=== PATIENT | male | born 1945 | race Caucasian/White ===

== ENCOUNTER → 2016-09-07 | Outpatient (CLI) | payer MEDICARE, BC ==
[~2016-09-07] MED LIST: ASPIR LOW81 MG PO; B-12 TIME1000 MCG PO; ENALAPRIL2.5 MG PO; ENALAPRIL20 MG PO; FLEXERIL10 MG PO; FLONASE NASAL S16 GM NS; FLUTICASON0.05 MG/AC NS; LEVEMIR100 U/M1 SQ; LEVEMIR100 U/ML SC; MAGNESIUM200 MG PO; MECLICOT25 MG PO; METFORMIN750 MG PO; NOVOLOG 100U100 U/ML SQ; PRAVASTATIN20 MG PO; TESTOSTERON200 MG/ML IM; VERAPAMIL80 MG PO; ZOFRAN4 M1 PO; ZORVOLEX18 MG PO
== END ==
LOC: LAB 09:39
DX: E10.9 Type 1 diabetes mellitus without complications (principal); I10 Essential (primary) hypertension; Z12.5 Encounter for screening for malignant neoplasm of prostate; E78.2 Mixed hyperlipidemia; E53.8 Deficiency of other specified B group vitamins

== ENCOUNTER → 2017-02-10 | Outpatient (CLI) | payer MEDICARE, BC ==
[~2017-02-10] VITALS: Ht 172.7 cm; Wt 74.1 kg
[2017-02-10 09:15] VITALS: BP 143/79
== END ==
LOC: AMSURD 08:14
DX: Z01.812 Encounter for preprocedural laboratory examination (principal); E10.9 Type 1 diabetes mellitus without complications

== ENCOUNTER → 2017-07-28 | Outpatient (CLI) | payer MEDICARE, BC ==
[~2017-07-28] VITALS: Ht 170.2 cm; Wt 79.5 kg
[~2017-07-28] MED LIST changes: +AFRIN PUMPMIST15 ML NS; -B-12 TIME1000 MCG PO; +CYANOCOBAL1000 MCG/1 IM; +CYCLOBENZAPRINE10 M1 PO; +DICLOFENAC SOD100 M1 PO; +EXCEDRIN MIGRA1 EACH PO; -FLEXERIL10 MG PO; +FLOMAX0.4 MG PO; +GLUCOPHAGE PO; +LEADER PAIN RE500 M1 PO; +LEVEMIR100 U/M1 SC; -LEVEMIR100 U/ML SC; +MAG DELAY70 MG; -METFORMIN750 MG PO; +PRAVASTATIN SOD40 MG PO; -PRAVASTATIN20 MG PO; +VERAPAMIL ER120 MG PO; +VERAPAMIL ER240 M1 PO; -VERAPAMIL80 MG PO; -ZORVOLEX18 MG PO
[2017-07-28 10:14] LABS: EOS # 0.1 (0.04-0.40); EOS % 1.8 % (0.0-4.0); HEMATOCRIT 47.1 % (42.0-52.0); HEMOGLOBIN 15.2 g/dL (13.5-18.0); LYMPH# 0.9 (1.50-4.00); MEAN CELL VOLUME 92 fl (78-100); MEAN CORPUSCULAR HEMOGLOBIN 30 pg (27-31); MEAN CORPUSCULAR HGB CONC 32 g/dL (33-37); MEAN PLATELET VOLUME 10.6 fl (7.4-10.4); MONO # 0.4 (0.20-0.80); NEU # 3.2 (1.40-6.50); PLATELET COUNT 138 K/mm3 (130-400); RED CELL DISTRIBUTION WIDTH 14.7 % (11.5-14.5); WHITE BLOOD COUNT 4.5 K/mm3 (4.8-10.8)
[2017-07-28 10:19] VITALS: BP 112/76
[2017-07-28 10:42] LABS: ALBUMIN 3.8 g/dL (3.5-5.0); BUN/CREATININE RATIO 22.8 (6.0-26.0); CALCIUM 9.1 mg/dL (8.4-10.2); POTASSIUM 4.9 mmol/L (3.6-5.0); TOTAL BILIRUBIN 0.5 mg/dL (0.2-1.3); TOTAL PROTEIN 6.3 g/dL (6.3-8.2)
[2017-07-28 10:43] LABS: URINE APPEARANCE CLEAR; URINE BILIRUBIN NEGATIVE (NEGATIVE); URINE BLOOD NEGATIVE (NEGATIVE); URINE COLOR YELLOW; URINE KETONE NEGATIVE (NEGATIVE); URINE LEUKOCYTE ESTERASE NEGATIVE (NEGATIVE); URINE NITRATE NEGATIVE (NEGATIVE); URINE PROTEIN(semi-quant) TRACE mg/dL (NEGATIVE); URINE UROBILINOGEN NORMAL (NORMAL)
[2017-07-28 10:44] LABS: URINE MUCUS PRESENT (NOT PRESENT)
== END ==
LOC: RAD 09:48
PROVIDERS: Internal Medicine
DX: Z01.818 Encounter for other preprocedural examination (principal); E10.9 Type 1 diabetes mellitus without complications; J34.2 Deviated nasal septum; Z88.0 Allergy status to penicillin

== ENCOUNTER → 2017-10-16 | Outpatient (CLI) | payer MEDICARE, BC ==
[2017-07-28 10:19] VITALS: BP 112/76
[2017-10-16 12:21] LABS: EOS # 0.1 (0.04-0.40); EOS % 1.8 % (0.0-4.0); HEMATOCRIT 47.5 % (42.0-52.0); HEMOGLOBIN 15.5 g/dL (13.5-18.0); LYMPH# 0.8 (1.50-4.00); MEAN CELL VOLUME 91 fl (78-100); MEAN CORPUSCULAR HEMOGLOBIN 30 pg (27-31); MEAN CORPUSCULAR HGB CONC 33 g/dL (33-37); MEAN PLATELET VOLUME 11.3 fl (7.4-10.4); MONO # 0.6 (0.20-0.80); NEU # 4.1 (1.40-6.50); PLATELET COUNT 145 K/mm3 (130-400); RED BLOOD COUNT 5.25 M/mm3 (4.20-5.60); RED CELL DISTRIBUTION WIDTH 13.5 % (11.5-14.5); WHITE BLOOD COUNT 5.5 K/mm3 (4.8-10.8)
[2017-10-16 12:37] LABS: ALBUMIN 3.7 g/dL (3.5-5.0); CALCIUM 9.3 mg/dL (8.4-10.2); POTASSIUM 4.5 mmol/L (3.6-5.0); TOTAL BILIRUBIN 0.3 mg/dL (0.2-1.3); TOTAL PROTEIN 6.7 g/dL (6.3-8.2)
[2017-10-16 13:22] LABS: URINE APPEARANCE HAZY; URINE BILIRUBIN NEGATIVE (NEGATIVE); URINE BLOOD NEGATIVE (NEGATIVE); URINE COLOR YELLOW; URINE GLUCOSE 50 mg/dL mg/dL (NEGATIVE); URINE KETONE NEGATIVE (NEGATIVE); URINE NITRATE NEGATIVE (NEGATIVE); URINE PROTEIN(semi-quant) TRACE mg/dL (NEGATIVE); URINE UROBILINOGEN NORMAL (NORMAL)
[2017-10-16 13:23] LABS: URINE LEUKOCYTE ESTERASE TRACE (NEGATIVE); URINE MUCUS PRESENT (NOT PRESENT)
[2017-10-16 13:25] LABS: ERYTHROCYTE SEDIMENTATION RATE 2 mm/hr (0-20)
[2017-10-17 01:16] LABS: TESTOSTERONE 973 ng/dL (221-716)
== END ==
LOC: LAB 11:50
PROVIDERS: Internal Medicine
DX: E10.9 Type 1 diabetes mellitus without complications (principal); Z12.5 Encounter for screening for malignant neoplasm of prostate; E78.2 Mixed hyperlipidemia; E29.1 Testicular hypofunction; E53.8 Deficiency of other specified B group vitamins; I10 Essential (primary) hypertension; N30.00 Acute cystitis without hematuria

== ENCOUNTER → 2018-02-05 | Outpatient (CLI) | payer MEDICARE, BC ==
[2018-01-23 12:40] VITALS: BP 139/79
[~2018-02-05] MED LIST changes: +MAGNESIUM400 MG PO; +METFORMIN ER500 MG PO
[2018-02-05 15:13] LABS: PROTHROMBIN TIME 9.1 SECONDS (9.0-12.0)
== END ==
LOC: LAB 14:05
PROVIDERS: Internal Medicine
DX: Z01.818 Encounter for other preprocedural examination (principal)

== ENCOUNTER → 2018-06-07 | Outpatient (CLI) | payer MEDICARE, BC ==
[2018-01-23 12:40] VITALS: BP 139/79
[2018-06-07 16:06] LABS: EOS # 0.1 (0.04-0.40); EOS % 1.8 % (0.0-4.0); HEMATOCRIT 46.8 % (42.0-52.0); HEMOGLOBIN 15.5 g/dL (13.5-18.0); LYMPH# 0.9 (1.50-4.00); MEAN CELL VOLUME 90 fl (78-100); MEAN CORPUSCULAR HEMOGLOBIN 30 pg (27-31); MEAN CORPUSCULAR HGB CONC 33 g/dL (33-37); MEAN PLATELET VOLUME 10.7 fl (7.4-10.4); MONO # 0.4 (0.20-0.80); NEU # 3.5 (1.40-6.50); PLATELET COUNT 135 K/mm3 (130-400); RED BLOOD COUNT 5.18 M/mm3 (4.20-5.60); RED CELL DISTRIBUTION WIDTH 13.6 % (11.5-14.5); WHITE BLOOD COUNT 4.9 K/mm3 (4.8-10.8)
[2018-06-07 16:22] LABS: ALBUMIN 4.1 g/dL (3.5-5.0); CALCIUM 9.2 mg/dL (8.4-10.2); POTASSIUM 4.6 mmol/L (3.6-5.0); TOTAL BILIRUBIN 0.4 mg/dL (0.2-1.3); TOTAL PROTEIN 6.4 g/dL (6.3-8.2)
== END ==
LOC: RAD 15:38
PROVIDERS: Internal Medicine
DX: I10 Essential (primary) hypertension (principal); R06.02 Shortness of breath; E10.9 Type 1 diabetes mellitus without complications

== ENCOUNTER → 2018-06-11 | Outpatient (CLI) | payer MEDICARE, BC ==
[2018-01-23 12:40] VITALS: BP 139/79
== END ==
LOC: VAS 07:56
DX: I11.9 Hypertensive heart disease without heart failure (principal); E10.9 Type 1 diabetes mellitus without complications; G47.33 Obstructive sleep apnea (adult) (pediatric)

== ENCOUNTER → 2018-07-20 | Outpatient (CLI) | payer MEDICARE, BC ==
[2018-01-23 12:40] VITALS: BP 139/79
== END ==
LOC: CARDREHAB 09:14 → CARDLAB 10:48
DX: R06.02 Shortness of breath (principal); E10.9 Type 1 diabetes mellitus without complications; R53.83 Other fatigue
CPT/HCPCS: A9500

== ENCOUNTER 2019-04-14 13:07 | Emergency (ER) | payer MEDICARE, BC ==
[~2019-04-14] VITALS: Wt 77.3 kg
[2019-04-14] MEDS ORDERED: TRULICITY1.5 MG/0.5 SC (13:30)
[2019-04-14 13:46] LABS: POTASSIUM 4.5 mmol/L (3.5-5.1)
[2019-04-14 13:47] LABS: CALCIUM 8.5 mg/dL (8.3-10.5); URINE APPEARANCE CLEAR; URINE BILIRUBIN NEGATIVE (NEGATIVE); URINE BLOOD NEGATIVE (NEGATIVE); URINE COLOR YELLOW; URINE KETONE 2+ (NEGATIVE); URINE LEUKOCYTE ESTERASE NEGATIVE (NEGATIVE); URINE NITRATE NEGATIVE (NEGATIVE); URINE PROTEIN(semi-quant) TRACE mg/dL (NEGATIVE); URINE UROBILINOGEN NORMAL (NORMAL)
[2019-04-14 13:48] LABS: HEMATOCRIT 51.9 % (42.0-52.0); HEMOGLOBIN 17.5 g/dL (13.5-18.0); MEAN CELL VOLUME 90 fl (78-100); MEAN CORPUSCULAR HEMOGLOBIN 31 pg (27-31); MEAN CORPUSCULAR HGB CONC 34 g/dL (33-37); MEAN PLATELET VOLUME 11.2 fl (7.4-10.4); PLATELET COUNT 106 K/mm3 (130-400); RED BLOOD COUNT 5.74 M/mm3 (4.20-5.60); RED CELL DISTRIBUTION WIDTH 14.2 % (11.5-14.5); TOTAL PROTEIN 6.4 g/dL (6.2-8.1); WHITE BLOOD COUNT 7.3 K/mm3 (4.8-10.8)
[2019-04-14 14:04] LABS: BAND 4 % (0-10)
[2019-04-14 14:05] LABS: LYMPHOCYTE 3 % (20-51); MONOCYTE 6 % (3-10); NEUTROPHILS 86 % (42-75)
[2019-04-14 18:07] VITALS: BP 127/79
== END 2019-04-14 17:23 | disposition other institution (70) ==
LOC: ED 13:07
PROVIDERS: Family Medicine
DX: E87.2 Acidosis (principal); E11.9 Type 2 diabetes mellitus without complications; I10 Essential (primary) hypertension; Z87.442 Personal history of urinary calculi; Z90.49 Acquired absence of other specified parts of digestive tract; Z79.82 Long term (current) use of aspirin; Z79.4 Long term (current) use of insulin
CPT/HCPCS: J1815; J2405; J7030

== ENCOUNTER 2019-04-14 17:23 | Inpatient (IN) | payer MEDICARE, BC ==
[~2019-04-14] VITALS: Ht 170.2 cm; Wt 78.3 kg
[~2019-04-14 17:23] MED LIST changes: +TRULICITY1.5 MG/0.5 SC
[2019-04-14 18:01] VITALS: BP 127/79
[2019-04-14 18:04] VITALS: BP 127/79
[2019-04-14 22:59] VITALS: BP 119/67
[2019-04-15 02:24] VITALS: BP 112/65
[2019-04-15 06:21] VITALS: BP 143/70
[2019-04-15 06:32] LABS: HEMATOCRIT 45.4 % (42.0-52.0); HEMOGLOBIN 15.2 g/dL (13.5-18.0); MEAN CELL VOLUME 93 fl (78-100); MEAN CORPUSCULAR HEMOGLOBIN 31 pg (27-31); MEAN CORPUSCULAR HGB CONC 34 g/dL (33-37); MEAN PLATELET VOLUME 10.7 fl (7.4-10.4); PLATELET COUNT 85 K/mm3 (130-400); RED BLOOD COUNT 4.88 M/mm3 (4.20-5.60); RED CELL DISTRIBUTION WIDTH 14.5 % (11.5-14.5); WHITE BLOOD COUNT 3.5 K/mm3 (4.8-10.8)
[2019-04-15 06:52] LABS: BAND 3 % (0-10); LYMPHOCYTE 8 % (20-51); MONOCYTE 8 % (3-10); NEUTROPHILS 73 % (42-75)
[2019-04-15 06:55] LABS: POTASSIUM 4.4 mmol/L (3.5-5.1)
[2019-04-15 06:56] LABS: CALCIUM 7.4 mg/dL (8.3-10.5)
[2019-04-15 11:05] VITALS: BP 136/80
[2019-04-15 15:29] VITALS: BP 108/62
[2019-04-15 18:46] VITALS: BP 98/61
[2019-04-15 23:39] VITALS: BP 114/63
[2019-04-16 02:27] VITALS: BP 114/65
[2019-04-16 06:24] VITALS: BP 113/69
[2019-04-16 08:30] LABS: EOS # 0.3 (0.04-0.40); HEMATOCRIT 47.7 % (42.0-52.0); HEMOGLOBIN 15.5 g/dL (13.5-18.0); MEAN CELL VOLUME 92 fl (78-100); MEAN CORPUSCULAR HEMOGLOBIN 30 pg (27-31); MEAN CORPUSCULAR HGB CONC 33 g/dL (33-37); MEAN PLATELET VOLUME 10.6 fl (7.4-10.4); MONO # 0.4 (0.20-0.80); NEU # 3.1 (1.40-6.50); PLATELET COUNT 101 K/mm3 (130-400); RED BLOOD COUNT 5.16 M/mm3 (4.20-5.60); RED CELL DISTRIBUTION WIDTH 14.7 % (11.5-14.5); WHITE BLOOD COUNT 4.5 K/mm3 (4.8-10.8)
[2019-04-16 08:38] LABS: POTASSIUM 4.3 mmol/L (3.5-5.1)
[2019-04-16 08:39] LABS: CALCIUM 7.7 mg/dL (8.3-10.5)
[2019-04-16 08:44] LABS: EOS % 6.2 % (0.0-4.0); LYMPH# 0.7 (1.50-4.00)
[2019-04-16] MEDS ORDERED: VIBRAMYCIN HYC100 MG PO (11:01)
[2019-04-16 11:43] VITALS: BP 129/72
== END 2019-04-16 13:55 | disposition home or self-care (01) | DRG 639 ==
LOC: MED/SURG 17:23
PROVIDERS: Nurse Practitioner Primary Care; ADMIT Family Medicine
DX: E11.10 Type 2 diabetes mellitus with ketoacidosis without coma (principal); G47.33 Obstructive sleep apnea (adult) (pediatric); K52.9 Noninfective gastroenteritis and colitis, unspecified; E11.9 Type 2 diabetes mellitus without complications; Z79.4 Long term (current) use of insulin; Z79.82 Long term (current) use of aspirin; Z99.81 Dependence on supplemental oxygen
CPT/HCPCS: J0696; J1815; J1956; J3490; J7030

== ENCOUNTER → 2019-06-03 | Outpatient (CLI) | payer MEDICARE, BC ==
[~2019-06-03] MED LIST changes: +VIBRAMYCIN HYC100 MG PO
[2019-06-04 12:44] LABS: LYME DISEASE EIA Negative (Negative)
== END ==
LOC: LAB 10:58
PROVIDERS: Internal Medicine
DX: R50.9 Fever, unspecified (principal)

== ENCOUNTER → 2019-06-11 | Outpatient (CLI) | payer MEDICARE, BC ==
[2019-06-11 09:25] LABS: EOS # 0.3 (0.04-0.40); HEMOGLOBIN 15.9 g/dL (13.5-18.0); MEAN CELL VOLUME 92 fl (78-100); MEAN CORPUSCULAR HEMOGLOBIN 30 pg (27-31); MEAN CORPUSCULAR HGB CONC 32 g/dL (33-37); MEAN PLATELET VOLUME 11.3 fl (7.4-10.4); MONO # 0.4 (0.20-0.80); NEU # 3.4 (1.40-6.50); PLATELET COUNT 138 K/mm3 (130-400); RED BLOOD COUNT 5.35 M/mm3 (4.20-5.60); RED CELL DISTRIBUTION WIDTH 13.6 % (11.5-14.5); WHITE BLOOD COUNT 4.9 K/mm3 (4.8-10.8)
[2019-06-11 09:37] LABS: POTASSIUM 5.2 mmol/L (3.5-5.1)
[2019-06-11 09:38] LABS: ALBUMIN 3.9 g/dL (3.4-4.8)
[2019-06-11 09:39] LABS: CALCIUM 9.1 mg/dL (8.3-10.5)
[2019-06-11 09:40] LABS: TOTAL PROTEIN 6.4 g/dL (6.2-8.1)
[2019-06-11 09:42] LABS: TOTAL BILIRUBIN 0.5 mg/dL (0.2-1.2)
[2019-06-11 09:47] LABS: MAGNESIUM 1.68 mg/dL (1.60-2.60)
[2019-06-11 09:49] LABS: EOS % 6.6 % (0.0-4.0); LYMPH# 0.7 (1.50-4.00)
[2019-06-11 10:39] LABS: ERYTHROCYTE SEDIMENTATION RATE 1 mm/hr (0-20)
[2019-06-11 23:33] LABS: TESTOSTERONE 169 ng/dL (221-716)
== END ==
LOC: RAD 09:07
PROVIDERS: Internal Medicine
DX: M19.041 Primary osteoarthritis, right hand (principal); M19.042 Primary osteoarthritis, left hand

== ENCOUNTER → 2019-08-19 | Outpatient (CLI) | payer MEDICARE, BC ==
[2019-08-19 16:19] LABS: URINE APPEARANCE CLEAR; URINE COLOR YELLOW
[2019-08-19 16:20] LABS: URINE BILIRUBIN NEGATIVE (NEGATIVE); URINE BLOOD TRACE (NEGATIVE); URINE KETONE NEGATIVE (NEGATIVE); URINE LEUKOCYTE ESTERASE NEGATIVE (NEGATIVE); URINE NITRATE NEGATIVE (NEGATIVE); URINE PROTEIN(semi-quant) 1+ mg/dL (NEGATIVE); URINE UROBILINOGEN NORMAL (NORMAL)
== END ==
LOC: LAB 15:57
PROVIDERS: Internal Medicine
DX: E10.9 Type 1 diabetes mellitus without complications (principal); N39.0 Urinary tract infection, site not specified

== ENCOUNTER → 2019-11-28 | Outpatient (CLI) | payer MEDICARE, BC ==
[2019-11-28 11:29] LABS: EOS # 0.1 (0.04-0.40); EOS % 1.8 % (0.0-4.0); HEMATOCRIT 49.5 % (42.0-52.0); HEMOGLOBIN 16.5 g/dL (13.5-18.0); LYMPH# 0.8 (1.50-4.00); MEAN CELL VOLUME 90 fl (78-100); MEAN CORPUSCULAR HEMOGLOBIN 30 pg (27-31); MEAN CORPUSCULAR HGB CONC 33 g/dL (33-37); MEAN PLATELET VOLUME 10.8 fl (7.4-10.4); MONO # 0.4 (0.20-0.80); NEU # 3.1 (1.40-6.50); PLATELET COUNT 111 K/mm3 (130-400); WHITE BLOOD COUNT 4.4 K/mm3 (4.8-10.8)
[2019-11-28 11:39] LABS: ALBUMIN 4.1 g/dL (3.4-4.8); POTASSIUM 4.7 mmol/L (3.5-5.1)
[2019-11-28 11:40] LABS: CALCIUM 9.3 mg/dL (8.3-10.5)
[2019-11-28 11:42] LABS: TOTAL PROTEIN 6.6 g/dL (6.2-8.1)
[2019-11-28 11:44] LABS: TOTAL BILIRUBIN 0.6 mg/dL (0.2-1.2)
[2019-11-28 11:48] LABS: MAGNESIUM 1.84 mg/dL (1.60-2.60)
[2019-11-28 12:36] LABS: URINE APPEARANCE CLEAR; URINE BILIRUBIN NEGATIVE (NEGATIVE); URINE BLOOD 50 ery/uL (NEGATIVE); URINE COLOR YELLOW; URINE GLUCOSE NEGATIVE (NEGATIVE); URINE KETONE NEGATIVE (NEGATIVE); URINE LEUKOCYTE ESTERASE NEGATIVE (NEGATIVE); URINE NITRATE NEGATIVE (NEGATIVE); URINE PROTEIN(semi-quant) 1+ mg/dL (NEGATIVE); URINE UROBILINOGEN NORMAL (NORMAL)
[2019-11-28 12:37] LABS: URINE WBC 0-1 /hpf (0-3)
[2019-11-28 12:52] LABS: ERYTHROCYTE SEDIMENTATION RATE 0 mm/hr (0-20)
[2019-11-28 22:11] LABS: TESTOSTERONE 374 ng/dL (221-716)
== END ==
LOC: LAB 11:17
PROVIDERS: Internal Medicine
DX: Z12.5 Encounter for screening for malignant neoplasm of prostate (principal); E10.9 Type 1 diabetes mellitus without complications; E78.5 Hyperlipidemia, unspecified; E53.8 Deficiency of other specified B group vitamins

== ENCOUNTER → 2020-04-17 | Outpatient (CLI) | payer MEDICARE, BC ==
[2020-04-17 15:01] LABS: EOS # 0.1 (0.04-0.40); EOS % 1.1 % (0.0-4.0); HEMATOCRIT 47.2 % (42.0-52.0); HEMOGLOBIN 15.8 g/dL (13.5-18.0); MEAN CELL VOLUME 92 fl (78-100); MEAN CORPUSCULAR HEMOGLOBIN 31 pg (27-31); MEAN CORPUSCULAR HGB CONC 34 g/dL (33-37); MEAN PLATELET VOLUME 10.9 fl (7.4-10.4); MONO # 0.5 (0.20-0.80); NEU # 3.3 (1.40-6.50); PLATELET COUNT 118 K/mm3 (130-400); RED BLOOD COUNT 5.11 M/mm3 (4.20-5.60); RED CELL DISTRIBUTION WIDTH 13.6 % (11.5-14.5); WHITE BLOOD COUNT 4.5 K/mm3 (4.8-10.8)
[2020-04-17 15:02] LABS: LYMPH# 0.7 (1.50-4.00)
[2020-04-17 15:09] LABS: POTASSIUM 5.2 mmol/L (3.5-5.1)
[2020-04-17 15:10] LABS: CALCIUM 8.9 mg/dL (8.3-10.5)
[2020-04-17 15:11] LABS: TOTAL PROTEIN 6.4 g/dL (6.2-8.1)
[2020-04-17 15:12] LABS: PROTHROMBIN TIME 9.3 SECONDS (9.0-12.0)
[2020-04-17 15:13] LABS: TOTAL BILIRUBIN 0.4 mg/dL (0.2-1.2)
[2020-04-17 15:18] LABS: MAGNESIUM 1.8 mg/dL (1.60-2.60)
== END ==
LOC: LAB 14:47
PROVIDERS: Internal Medicine
DX: Z01.818 Encounter for other preprocedural examination (principal); N40.0 Benign prostatic hyperplasia without lower urinary tract symptoms

== ENCOUNTER 2020-05-09 09:09 | Emergency (ER) | payer MEDICARE, BC ==
[~2020-05-09] VITALS: Ht 170.2 cm; Wt 76.4 kg
[2020-05-09 09:58] LABS: HEMATOCRIT 47.7 % (42.0-52.0); HEMOGLOBIN 16.2 g/dL (13.5-18.0); MEAN CELL VOLUME 91 fl (78-100); MEAN CORPUSCULAR HEMOGLOBIN 31 pg (27-31); MEAN CORPUSCULAR HGB CONC 34 g/dL (33-37); MEAN PLATELET VOLUME 10.7 fl (7.4-10.4); PLATELET COUNT 124 K/mm3 (130-400); RED BLOOD COUNT 5.23 M/mm3 (4.20-5.60); WHITE BLOOD COUNT 11.8 K/mm3 (4.8-10.8)
[2020-05-09 10:05] LABS: ALBUMIN 3.9 g/dL (3.4-4.8); POTASSIUM 4.6 mmol/L (3.5-5.1)
[2020-05-09 10:07] LABS: CALCIUM 9.1 mg/dL (8.3-10.5)
[2020-05-09 10:10] LABS: TOTAL BILIRUBIN 0.8 mg/dL (0.2-1.2)
[2020-05-09 10:15] LABS: BAND 3 % (0-10); LYMPHOCYTE 5 % (20-51); MONOCYTE 6 % (3-10); NEUTROPHILS 86 % (42-75)
[2020-05-09 11:01] LABS: PH-URINE 6.5 (5.0 - 8.0); URINE APPEARANCE CLOUDY; URINE BILIRUBIN NEGATIVE (NEGATIVE); URINE COLOR DK YELLOW; URINE GLUCOSE 50 mg/dL mg/dL (NEGATIVE); URINE KETONE 1+ (NEGATIVE); URINE PROTEIN(semi-quant) 1+ mg/dL (NEGATIVE); URINE UROBILINOGEN NORMAL (NORMAL)
[2020-05-09 11:02] LABS: URINE BLOOD 250 ery/uL (NEGATIVE); URINE LEUKOCYTE ESTERASE 2+ (NEGATIVE); URINE NITRATE POSITIVE (NEGATIVE)
[2020-05-09 11:12] LABS: URINE WBC 31-50 /hpf (0-3)
[2020-05-09 11:13] LABS: URINE MUCUS PRESENT (NOT PRESENT)
[2020-05-09] MEDS ORDERED: ZOFRAN ODT4 MG PO (12:37)
[2020-05-09 14:45] VITALS: BP 178/92
== END 2020-05-09 14:45 | disposition home or self-care (01) ==
LOC: ED 09:09
PROVIDERS: Family Medicine
DX: R11.2 Nausea with vomiting, unspecified (principal); N39.0 Urinary tract infection, site not specified; E11.9 Type 2 diabetes mellitus without complications; I10 Essential (primary) hypertension; E78.5 Hyperlipidemia, unspecified; Z20.828 Contact with and (suspected) exposure to other viral communicable diseases; Z87.891 Personal history of nicotine dependence; Z90.79 Acquired absence of other genital organ(s); Z90.89 Acquired absence of other organs; Z90.49 Acquired absence of other specified parts of digestive tract; Z88.0 Allergy status to penicillin; Z88.8 Allergy status to other drugs, medicaments and biological substances; Z79.4 Long term (current) use of insulin; Z79.82 Long term (current) use of aspirin
CPT/HCPCS: J1956; J2405; J7030

== ENCOUNTER → 2020-08-10 | Outpatient (CLI) | payer MEDICARE, BC ==
[~2020-08-10] MED LIST changes: +ZOFRAN ODT4 MG PO
[2020-08-10 08:42] LABS: EOS # 0.1 (0.04-0.40); EOS % 1.9 % (0.0-4.0); HEMATOCRIT 50.8 % (42.0-52.0); HEMOGLOBIN 16.6 g/dL (13.5-18.0); LYMPH# 0.8 (1.50-4.00); MEAN CELL VOLUME 92 fl (78-100); MEAN CORPUSCULAR HEMOGLOBIN 30 pg (27-31); MEAN CORPUSCULAR HGB CONC 33 g/dL (33-37); MEAN PLATELET VOLUME 11.3 fl (7.4-10.4); MONO # 0.4 (0.20-0.80); NEU # 3.3 (1.40-6.50); PLATELET COUNT 110 K/mm3 (130-400); RED BLOOD COUNT 5.55 M/mm3 (4.20-5.60); WHITE BLOOD COUNT 4.7 K/mm3 (4.8-10.8)
[2020-08-10 08:43] LABS: POTASSIUM 4.7 mmol/L (3.5-5.1)
[2020-08-10 08:44] LABS: CALCIUM 9.1 mg/dL (8.3-10.5)
[2020-08-10 08:46] LABS: TOTAL PROTEIN 6.6 g/dL (6.2-8.1)
[2020-08-10 08:47] LABS: TOTAL BILIRUBIN 0.4 mg/dL (0.2-1.2)
[2020-08-10 09:47] LABS: ERYTHROCYTE SEDIMENTATION RATE 1 mm/hr (0-20)
== END ==
LOC: LAB 08:17
PROVIDERS: Internal Medicine
DX: E10.9 Type 1 diabetes mellitus without complications (principal); E78.2 Mixed hyperlipidemia; K90.9 Intestinal malabsorption, unspecified

== ENCOUNTER → 2020-08-25 | Outpatient (CLI) | payer MEDICARE, BC ==
[2020-08-25 15:53] LABS: EOS # 0.1 (0.04-0.40); EOS % 1.6 % (0.0-4.0); HEMATOCRIT 49.6 % (42.0-52.0); HEMOGLOBIN 16.2 g/dL (13.5-18.0); LYMPH# 0.8 (1.50-4.00); MEAN CELL VOLUME 92 fl (78-100); MEAN CORPUSCULAR HEMOGLOBIN 30 pg (27-31); MEAN CORPUSCULAR HGB CONC 33 g/dL (33-37); MEAN PLATELET VOLUME 10.9 fl (7.4-10.4); MONO # 0.4 (0.20-0.80); NEU # 3.5 (1.40-6.50); PLATELET COUNT 106 K/mm3 (130-400); RED BLOOD COUNT 5.41 M/mm3 (4.20-5.60); RED CELL DISTRIBUTION WIDTH 14.1 % (11.5-14.5); WHITE BLOOD COUNT 4.9 K/mm3 (4.8-10.8)
[2020-08-25 16:00] LABS: ALBUMIN 3.8 g/dL (3.4-4.8); POTASSIUM 4.8 mmol/L (3.5-5.1)
[2020-08-25 16:03] LABS: TOTAL PROTEIN 6.3 g/dL (6.2-8.1)
[2020-08-25 16:05] LABS: TOTAL BILIRUBIN 0.4 mg/dL (0.2-1.2)
== END ==
LOC: LAB 15:37
PROVIDERS: Nurse Practitioner
DX: I50.33 Acute on chronic diastolic (congestive) heart failure (principal)

== ENCOUNTER → 2020-11-10 | Outpatient (CLI) | payer MEDICARE, BC ==
[2020-11-10 10:45] LABS: ALBUMIN 3.9 g/dL (3.4-4.8)
[2020-11-10 10:46] LABS: CALCIUM 9.1 mg/dL (8.3-10.5)
[2020-11-10 10:48] LABS: TOTAL PROTEIN 6.6 g/dL (6.2-8.1)
[2020-11-10 10:49] LABS: TOTAL BILIRUBIN 0.6 mg/dL (0.2-1.2)
== END ==
LOC: LAB 10:14
PROVIDERS: Internal Medicine
DX: E10.9 Type 1 diabetes mellitus without complications (principal); M51.36 Other intervertebral disc degeneration, lumbar region; R97.8 Other abnormal tumor markers; M41.86 Other forms of scoliosis, lumbar region; Z98.890 Other specified postprocedural states

== ENCOUNTER → 2021-02-12 | Outpatient (CLI) | payer MEDICARE, BC | LOC: LAB 14:28 | DX: E10.9 Type 1 diabetes mellitus without complications (principal) ==

== ENCOUNTER → 2021-05-03 | Outpatient (CLI) | payer MEDICARE, BC | LOC: LAB 10:06 | DX: C61 Malignant neoplasm of prostate (principal) ==

== ENCOUNTER → 2021-05-14 | Outpatient (CLI) | payer MEDICARE, BC | LOC: RAD 11:27 → LAB 11:27 | DX: E10.9 Type 1 diabetes mellitus without complications (principal); M19.031 Primary osteoarthritis, right wrist; M19.032 Primary osteoarthritis, left wrist ==

== ENCOUNTER → 2021-08-13 | Outpatient (CLI) | payer MEDICARE, BC ==
[2021-08-13 11:18] LABS: BASO # 0.02 K/mm3 (0.02-0.10); EOS # 0.08 K/mm3 (0.04-0.40); HEMATOCRIT 51.4 % (42.0-52.0); LYMPH# 0.64 K/mm3 (1.50-4.00); MEAN CELL VOLUME 93 fl (78-100); MEAN CORPUSCULAR HEMOGLOBIN 31 pg (27-31); MEAN CORPUSCULAR HGB CONC 33 g/dL (33-37); MEAN PLATELET VOLUME 11.5 fl (7.4-10.4); MONO # 0.32 K/mm3 (0.20-0.80); NEU # 2.85 K/mm3 (1.40-6.50); PLATELET COUNT 101 K/mm3 (130-400); RED BLOOD COUNT 5.54 M/mm3 (4.20-5.60); RED CELL DISTRIBUTION WIDTH 13.9 % (11.5-14.5); WHITE BLOOD COUNT 3.9 K/mm3 (4.8-10.8)
[2021-08-13 11:24] LABS: POTASSIUM 4.9 mmol/L (3.5-5.1)
[2021-08-13 11:25] LABS: ALBUMIN 3.9 g/dL (3.4-4.8)
[2021-08-13 11:26] LABS: CALCIUM 9.3 mg/dL (8.3-10.5)
[2021-08-13 11:27] LABS: TOTAL PROTEIN 6.4 g/dL (6.2-8.1)
[2021-08-13 11:29] LABS: TOTAL BILIRUBIN 0.5 mg/dL (0.2-1.2)
[2021-08-13 11:34] LABS: MAGNESIUM 1.76 mg/dL (1.60-2.60)
== END ==
LOC: LAB 10:05
PROVIDERS: Internal Medicine
DX: K90.9 Intestinal malabsorption, unspecified (principal); I10 Essential (primary) hypertension; E10.9 Type 1 diabetes mellitus without complications; E78.2 Mixed hyperlipidemia

== ENCOUNTER → 2021-09-22 | Outpatient (CLI) | payer MEDICARE, BC ==
[2021-09-22 09:04] LABS: ALBUMIN 3.8 g/dL (3.4-4.8); POTASSIUM 4.5 mmol/L (3.5-5.1)
[2021-09-22 09:05] LABS: CALCIUM 9.3 mg/dL (8.3-10.5)
[2021-09-22 09:06] LABS: TOTAL PROTEIN 6.2 g/dL (6.2-8.1)
[2021-09-22 09:08] LABS: TOTAL BILIRUBIN 0.5 mg/dL (0.2-1.2)
== END ==
LOC: LAB 08:29
PROVIDERS: Internal Medicine
DX: E78.2 Mixed hyperlipidemia (principal)

== ENCOUNTER → 2021-11-11 | Outpatient (CLI) | payer MEDICARE, BC ==
[2021-11-11 11:41] LABS: CALCIUM 9.3 mg/dL (8.3-10.5)
== END ==
LOC: LAB 11:06
PROVIDERS: Urology
DX: I50.33 Acute on chronic diastolic (congestive) heart failure (principal); E10.9 Type 1 diabetes mellitus without complications

== ENCOUNTER → 2021-11-15 | Outpatient (CLI) | payer MEDICARE, BC | LOC: LAB 11:28 | DX: C61 Malignant neoplasm of prostate (principal); I50.33 Acute on chronic diastolic (congestive) heart failure; I10 Essential (primary) hypertension; E78.2 Mixed hyperlipidemia; K90.9 Intestinal malabsorption, unspecified; M51.9 Unspecified thoracic, thoracolumbar and lumbosacral intervertebral disc disorder ==

== ENCOUNTER → 2022-02-15 | Outpatient (CLI) | payer MEDICARE, BC ==
[2022-02-15 10:41] LABS: BASO # 0.02 K/mm3 (0.02-0.10); EOS # 0.08 K/mm3 (0.04-0.40); EOS % 1.7 % (0.0-4.0); HEMATOCRIT 47.7 % (42.0-52.0); HEMOGLOBIN 15.7 g/dL (13.5-18.0); LYMPH# 0.66 K/mm3 (1.50-4.00); MEAN CELL VOLUME 94 fl (78-100); MEAN CORPUSCULAR HEMOGLOBIN 31 pg (27-31); MEAN CORPUSCULAR HGB CONC 33 g/dL (33-37); MONO # 0.31 K/mm3 (0.20-0.80); NEU # 3.69 K/mm3 (1.40-6.50); PLATELET COUNT 110 K/mm3 (130-400); RED CELL DISTRIBUTION WIDTH 13.1 % (11.5-14.5); WHITE BLOOD COUNT 4.8 K/mm3 (4.8-10.8)
[2022-02-15 10:52] LABS: CALCIUM 9.2 mg/dL (8.3-10.5)
[2022-02-15 10:53] LABS: TOTAL PROTEIN 6.4 g/dL (6.2-8.1)
[2022-02-15 10:55] LABS: TOTAL BILIRUBIN 0.4 mg/dL (0.2-1.2)
[2022-02-15 10:59] LABS: MAGNESIUM 1.81 mg/dL (1.60-2.60)
== END ==
LOC: LAB 10:25
PROVIDERS: Internal Medicine
DX: I11.0 Hypertensive heart disease with heart failure (principal); I50.33 Acute on chronic diastolic (congestive) heart failure; E10.9 Type 1 diabetes mellitus without complications; K90.9 Intestinal malabsorption, unspecified; E78.2 Mixed hyperlipidemia; M51.9 Unspecified thoracic, thoracolumbar and lumbosacral intervertebral disc disorder; C61 Malignant neoplasm of prostate

== ENCOUNTER → 2022-05-10 | Outpatient (CLI) | payer MEDICARE, BC | LOC: LAB 09:42 | DX: C61 Malignant neoplasm of prostate (principal) ==

== ENCOUNTER → 2022-06-14 | Outpatient (CLI) | payer MEDICARE, BC ==
[2022-06-14 10:41] LABS: BASO # 0.02 K/mm3 (0.02-0.10); EOS # 0.15 K/mm3 (0.04-0.40); EOS % 3.8 % (0.0-4.0); HEMATOCRIT 43.1 % (42.0-52.0); HEMOGLOBIN 14.8 g/dL (13.5-18.0); LYMPH# 0.74 K/mm3 (1.50-4.00); MEAN CELL VOLUME 92 fl (78-100); MEAN CORPUSCULAR HEMOGLOBIN 32 pg (27-31); MEAN CORPUSCULAR HGB CONC 34 g/dL (33-37); NEU # 2.71 K/mm3 (1.40-6.50); PLATELET COUNT 118 K/mm3 (130-400); RED BLOOD COUNT 4.67 M/mm3 (4.20-5.60); RED CELL DISTRIBUTION WIDTH 12.7 % (11.5-14.5); WHITE BLOOD COUNT 3.9 K/mm3 (4.8-10.8)
[2022-06-14 10:43] LABS: ALBUMIN 3.9 g/dL (3.4-4.8); POTASSIUM 4.5 mmol/L (3.5-5.1)
[2022-06-14 10:44] LABS: CALCIUM 9.3 mg/dL (8.3-10.5)
[2022-06-14 10:46] LABS: TOTAL PROTEIN 6.2 g/dL (6.2-8.1)
[2022-06-14 10:48] LABS: TOTAL BILIRUBIN 0.6 mg/dL (0.2-1.2)
[2022-06-14 10:52] LABS: MAGNESIUM 1.73 mg/dL (1.60-2.60)
== END ==
LOC: LAB 10:22
PROVIDERS: Internal Medicine
DX: I10 Essential (primary) hypertension (principal); E78.2 Mixed hyperlipidemia; E10.9 Type 1 diabetes mellitus without complications

== ENCOUNTER → 2024-01-22 | Outpatient (CLI) | payer MEDICARE, BC ==
[~2024-01-22] MED LIST changes: +ASPERCREME1 EACH TP
== END ==
LOC: LAB 14:00
DX: E10.9 Type 1 diabetes mellitus without complications (principal)

== ENCOUNTER 2024-02-13 15:44 | Emergency (ER) | payer MEDICARE, BC ==
[~2024-02-13] VITALS: Ht 172.7 cm; Wt 75.0 kg
[2024-02-13] MEDS ORDERED: Acetaminophen 325 MG TAB PO ONE (16:15)
[2024-02-13 17:34] VITALS: BP 154/92
== END 2024-02-13 17:34 | disposition home or self-care (01) ==
LOC: ED 15:44
DX: S09.90XA Unspecified injury of head, initial encounter (principal); S01.112A Laceration without foreign body of left eyelid and periocular area, initial encounter; S61.412A Laceration without foreign body of left hand, initial encounter; S50.12XA Contusion of left forearm, initial encounter; W01.10XA Fall on same level from slipping, tripping and stumbling with subsequent striking against unspecified object, initial encounter
CPT/HCPCS: 90715

== ENCOUNTER → 2024-04-19 | Outpatient (CLI) | payer MEDICARE, BC ==
[~2024-04-19] VITALS: Ht 167.6 cm; Wt 77.1 kg
[~2024-04-19] MED LIST changes: +Regadenoson 0.08 MG/ML 5 ML VIAL IV SCH
== END ==
LOC: CARDREHAB 10:44
DX: R06.00 Dyspnea, unspecified (principal)
CPT/HCPCS: A9500; J2785

== ENCOUNTER → 2024-05-10 | Outpatient (CLI) | payer MEDICARE, BC ==
[~2024-05-10] MED LIST changes: +Gadoterate 20 ML VIAL IV ONE; -Regadenoson 0.08 MG/ML 5 ML VIAL IV SCH
== END ==
LOC: RAD 08:13
DX: M51.16 Intervertebral disc disorders with radiculopathy, lumbar region (principal); M89.38 Hypertrophy of bone, other site; S27.1XXA Traumatic hemothorax, initial encounter
CPT/HCPCS: A9575

== ENCOUNTER 2024-07-01 08:01 | Emergency (ER) | payer MEDICARE, BC ==
[~2024-07-01] VITALS: Ht 170.2 cm; Wt 73.0 kg
[~2024-07-01 08:01] MED LIST changes: -Gadoterate 20 ML VIAL IV ONE
[2024-07-01 08:35] VITALS: BP 170/86
[2024-07-01] MEDS ORDERED: MELOXICAM15 MG PO (09:16)
[2024-07-01] MEDS ORDERED: MOUNJARO12.5 MG/0. SQ (09:17)
[2024-07-01] MEDS ORDERED: BASAGLAR K100 UNIT/1 (09:20)
[2024-07-01] MEDS ORDERED: Ketorolac 30 MG/ML VIAL IM ONE (09:30)
[2024-07-01] MEDS ORDERED: Orphenadrine 60 MG/2ML AMP IM ONE (09:30)
== END 2024-07-01 10:35 | disposition home or self-care (01) ==
LOC: ED 08:01
DX: M54.31 Sciatica, right side (principal)
CPT/HCPCS: A4314; J1885; J2360

== ENCOUNTER 2024-07-05 13:46 | Emergency (ER) | payer MEDICARE, BC ==
[~2024-07-05] VITALS: Ht 170.2 cm; Wt 78.2 kg
[~2024-07-05 13:46] MED LIST changes: +BASAGLAR K100 UNIT/1; +MELOXICAM15 MG PO; +MOUNJARO12.5 MG/0. SQ
[2024-07-05 14:53] LABS: BASO # 0.03 K/mm3 (0.02-0.10); EOS % 1.8 % (0.0-4.0); HEMATOCRIT 48.2 % (42.0-52.0); HEMOGLOBIN 15.9 g/dL (13.5-18.0); MEAN CELL VOLUME 92 fl (78-100); MEAN CORPUSCULAR HEMOGLOBIN 30 pg (27-31); MEAN CORPUSCULAR HGB CONC 33 g/dL (33-37); MONO # 0.48 K/mm3 (0.20-0.80); NEU # 4.31 K/mm3 (1.40-6.50); PLATELET COUNT 125 K/mm3 (130-400); RED BLOOD COUNT 5.26 M/mm3 (4.20-5.60); RED CELL DISTRIBUTION WIDTH 14.4 % (11.5-14.5); WHITE BLOOD COUNT 5.5 K/mm3 (4.8-10.8)
[2024-07-05 15:03] LABS: ALBUMIN 3.9 g/dL (3.4-4.8)
[2024-07-05 15:04] LABS: CALCIUM 9.1 mg/dL (8.3-10.5)
[2024-07-05 15:06] LABS: TOTAL PROTEIN 6.2 g/dL (6.2-8.1)
[2024-07-05 15:07] LABS: TOTAL BILIRUBIN 0.4 mg/dL (0.2-1.2)
[2024-07-05 15:15] LABS: D-DIMER 0.23 mg/L FEU (0.15-0.50)
[2024-07-05] MEDS ORDERED: MEDROL DOSEPAK4 MG PO (16:32)
[2024-07-05 16:56] VITALS: BP 164/99
== END 2024-07-05 17:00 | disposition home or self-care (01) ==
LOC: ED 13:46
DX: M54.31 Sciatica, right side (principal)

== ENCOUNTER → 2024-07-31 | Outpatient (CLI) | payer MEDICARE, BC ==
[~2024-07-31] MED LIST changes: +MEDROL DOSEPAK4 MG PO
== END ==
LOC: LAB 11:39
DX: C61 Malignant neoplasm of prostate (principal)

== ENCOUNTER → 2024-08-01 | Outpatient (CLI) | payer MEDICARE, BC ==
[2024-08-01 16:35] LABS: URINE APPEARANCE CLEAR (CLEAR); URINE COLOR YELLOW (YELLOW)
[2024-08-01 16:36] LABS: PH-URINE 5.5 (5.0 - 8.0); URINE BILIRUBIN NEGATIVE (NEGATIVE); URINE BLOOD NEGATIVE (NEGATIVE); URINE GLUCOSE NEGATIVE (NEGATIVE); URINE KETONE TRACE (NEGATIVE); URINE LEUKOCYTE ESTERASE NEGATIVE (NEGATIVE); URINE MUCUS PRESENT (NOT PRESENT); URINE NITRATE NEGATIVE (NEGATIVE); URINE PROTEIN(semi-quant) 2+ (NEGATIVE); URINE WBC 0-1 /hpf (0-3)
== END ==
LOC: LAB 15:43
PROVIDERS: Internal Medicine
DX: N39.0 Urinary tract infection, site not specified (principal)

== ENCOUNTER → 2024-08-06 | Day surgery (SDC) | payer MEDICARE, BC ==
[~2024-08-06] MED LIST changes: +Iohexol 300 - 10 ML VIAL IV ONE; +Lidocaine PF 2% (20 MG/ML) 2 ML VIAL IJ SCH
== END ==
LOC: WKSPAIN 13:15 → MSO 15:09 → WKSPAIN 15:12
DX: M54.17 Radiculopathy, lumbosacral region (principal); M54.16 Radiculopathy, lumbar region; M47.816 Spondylosis without myelopathy or radiculopathy, lumbar region

== ENCOUNTER → 2024-09-17 | Day surgery (SDC) | payer MEDICARE, BC ==
[~2024-09-17] MED LIST changes: -Iohexol 300 - 10 ML VIAL IV ONE; -Lidocaine PF 2% (20 MG/ML) 2 ML VIAL IJ SCH
== END ==
LOC: WKSPAIN 13:19
DX: M47.817 Spondylosis without myelopathy or radiculopathy, lumbosacral region (principal); M54.50 Low back pain, unspecified

== ENCOUNTER → 2024-10-08 | Day surgery (SDC) | payer MEDICARE, BC | LOC: WKSPAIN 08:06 | DX: M47.896 Other spondylosis, lumbar region (principal); G89.29 Other chronic pain ==